=== PATIENT | female | born 1945 | race Caucasian/White ===

== ENCOUNTER 2016-12-12 19:28 | Emergency (ER) | payer OTHER ==
[~2016-12-12 19:28] MED LIST: ASPIR 8181 MG PO; COR6 PO; HYDROCHLOROTHIA25 MG PO; LIPI10 PO; PRO10 PO; ZESTRIL20 MG PO
[2016-12-12 21:25] VITALS: BP 132/74
== END 2016-12-12 21:25 | disposition home or self-care (01) ==
LOC: ED 19:28
DX: R21 Rash and other nonspecific skin eruption (principal); L29.9 Pruritus, unspecified; I10 Essential (primary) hypertension; Z88.5 Allergy status to narcotic agent
CPT/HCPCS: J1200; J2930

== ENCOUNTER 2017-03-09 17:53 | Emergency (ER) | payer OTHER ==
[~2017-03-09] VITALS: Ht 157.5 cm; Wt 92.1 kg
[2017-03-09 17:55] VITALS: BP 189/99
== END 2017-03-09 19:53 | disposition home or self-care (01) ==
LOC: ED 17:53
DX: S61.211A Laceration without foreign body of left index finger without damage to nail, initial encounter (principal); I10 Essential (primary) hypertension; Z88.5 Allergy status to narcotic agent; Z79.899 Other long term (current) drug therapy; W26.0XXA Contact with knife, initial encounter; Y93.89 Activity, other specified; Y99.8 Other external cause status; Y92.89 Other specified places as the place of occurrence of the external cause
CPT/HCPCS: J2001

== ENCOUNTER 2018-09-22 20:21 | Emergency (ER) | payer OTHER ==
[~2018-09-22] VITALS: Ht 154.9 cm; Wt 88.5 kg
[2018-09-22 20:59] VITALS: Ht 154.9 cm; Wt 88.5 kg
[2018-09-23 01:16] VITALS: BP 158/67
== END 2018-09-23 01:16 | disposition home or self-care (01) ==
LOC: ED 20:21
DX: M54.5 Low back pain (principal); R05 Cough; I10 Essential (primary) hypertension; Z88.5 Allergy status to narcotic agent
CPT/HCPCS: J1885; Q0092

== ENCOUNTER 2019-04-19 12:13 | Emergency (ER) | payer OTHER ==
[~2019-04-19] VITALS: Ht 154.9 cm; Wt 91.6 kg
[2019-04-19 12:24] VITALS: Ht 154.9 cm; Wt 91.6 kg
[2019-04-19 13:35] VITALS: BP 134/52
== END 2019-04-19 13:35 | disposition home or self-care (01) ==
LOC: ED 12:13
DX: S39.012A Strain of muscle, fascia and tendon of lower back, initial encounter (principal); S83.91XA Sprain of unspecified site of right knee, initial encounter; I10 Essential (primary) hypertension; Z88.5 Allergy status to narcotic agent; W06.XXXA Fall from bed, initial encounter; Y93.89 Activity, other specified; Y92.89 Other specified places as the place of occurrence of the external cause; Y99.8 Other external cause status